=== PATIENT | male | born 1945 | race Caucasian/White ===

== ENCOUNTER 2018-06-28 11:22 | Emergency (ER) | payer MEDICARE, BC, SELFPAY ==
[2018-06-28 11:28] VITALS: BP 160/89; PULSE 47; RESP 17; TEMP 36.4; O2SAT 100
--- NOTE | 2018-06-28 11:48 | W.ED.GENAD ---
Discharge Plan Disposition Patient Disposition: HOME Condition: Improving Discharge Details Chief Complaint: RespSymp Clinical Impression: Acute bronchitis Primary Care Provider: Isidro Llamas ED Provider: Woo Perez Home Meds and New Rx's Prescriptions: New levofloxacin 500 mg tablet 500 mg PO DAILY 10 Days Qty: 10 RF: 0 Discharge Instructions Instructions: Acute Bronchitis (ED) Additional Instructions: Please follow-up with Dr. Llamas if not improving in 5 days time. Take medication as prescribed. Return to see Dr. Llamas if you develop worsening cough, congestion, joint or ligament pain. Home to rest. Small, frequent sips of fluids to maintain hydration Medical Decision Making 73-year-old male presents from home with persistent cough and congestion is worsening now on day 8 and 9 of illness. Is afebrile and well-appearing. His exam is reassuring and during my exam his pulse is within normal limits. His presentation is concerning for a viral syndrome that is converting to a bacterial process after 1 week of illness. His oxygenation is normal and I do not feel he requires chest imaging, but will consider if he does not improve with oral antibiotic therapy. Asked him to follow-up with Dr. Llamas in clinic for recheck. Placed him on a course of Levaquin. Stable for outpatient management at this time. HPI General Mode of arrival: ambulatory. Date/Time Provider Initiated Documentation: 06/28/18 11:32. Limitations to Documentation: no limitations. Information obtained by: patient. History of Present Illness 73 year old M presents to the emergency department with the chief complaint of Cough and congestion, described as moderate, Quality is described as aching, and is localized to the chest. Patient reports no radiation. Patient started experiencing this day(s) and it has been intermittent. No relieving factors improve symptom(s), No exacerbating factors reported . HPI Narrative: This is a 73-year-old male who presents with cough, congestion, production of discolored sputum over 8 days time. He feels over the past 2 days has begun to get worse. Is not had any air hunger. He has not been vomiting. He has had significant exacerbating or ameliorating factors Related Data Home Medications Medication Instructions Recorded Confirmed levofloxacin 500 mg PO DAILY 10 Days #10 tab 06/28/18 Previous Rx's Medication Instructions Recorded levofloxacin 500 mg PO DAILY 10 Days #10 tab 06/28/18 Allergies Allergy/AdvReac Type Severity Reaction Status Date / Time Penicillins Allergy Unknown Unverified 08/20/15 13:14 General Stated Complaint: RespSymp ANA: 4 Review of Systems Review of Systems 6 systems reviewed and otherwise neg PFSH Social History Smoking/Tobacco Use Status: Former Tobacco Use Exam Narrative Exam Narrative: GEN: awake, alert, oriented 3. Pleasant, well groomed, interactive. HEAD: Normocephalic, atraumatic ENT: Mucous membranes moist, oropharynx unremarkable, External ear exam unremarkable EYES: PERRL, EOMI NECK: Full ROM, no IRAM, no menigismus CHEST/RESP: Nontender, clear to auscultation bilateral, no wheeze/rhonchi/rales. Cough noted CARDIOVASCULAR: RRR, no murmur, rub rufino. 2+ Rad pulse bilateral ABDOMEN: Soft, nontender, no mass. +Bowel sounds EXT: Full ROM, no edema, no rash Neuro: Grossly normal neurologic exam, conversant, interactive. Psych: Speech fluent, thoughts congruent, affect normal Course Vital Signs Temperature 36.4 C L 06/28/18 11:28 Pulse 47 L 06/28/18 11:28 Respiratory Rate 17 06/28/18 11:28 Blood Pressure 160/89 H 06/28/18 11:28 Pulse Oximetry 100 06/28/18 11:28 Temperature 36.4 C L 06/28/18 11:28 Temperature Source Temporal Artery Scan 06/28/18 11:28 Pulse 47 L 06/28/18 11:28 Respiratory Rate 17 06/28/18 11:28 Respiratory Effort 06/28/18 11:32 Blood Pressure 160/89 H 06/28/18 11:28 Blood Pressure Position Sitting 06/28/18 11:28 Pulse Oximetry 100 06/28/18 11:28 Oxygen Delivery Method Room Air 06/28/18 11:28 Oxygen Flow Rate 0 06/28/18 11:28 Pain Level 0 06/28/18 11:28
--- NOTE | 2018-06-28 11:52 | ED.GENADUL_ITS ---
Discharge Plan Disposition Patient Disposition: HOME Condition: Improving Discharge Details Chief Complaint: RespSymp Clinical Impression: Acute bronchitis Primary Care Provider: Isidro Llamas ED Provider: Woo Perez Home Meds and New Rx's Prescriptions: New levofloxacin 500 mg tablet 500 mg PO DAILY 10 Days Qty: 10 RF: 0 Discharge Instructions Instructions: Acute Bronchitis (ED) Additional Instructions: Please follow-up with Dr. Llamas if not improving in 5 days time. Take medication as prescribed. Return to see Dr. Llamas if you develop worsening cough, congestion, joint or ligament pain. Home to rest. Small, frequent sips of fluids to maintain hydration Medical Decision Making 73-year-old male presents from home with persistent cough and congestion is worsening now on day 8 and 9 of illness. Is afebrile and well-appearing. His exam is reassuring and during my exam his pulse is within normal limits. His presentation is concerning for a viral syndrome that is converting to a bacterial process after 1 week of illness. His oxygenation is normal and I do not feel he requires chest imaging, but will consider if he does not improve with oral antibiotic therapy. Asked him to follow-up with Dr. Llamas in clinic for recheck. Placed him on a course of Levaquin. Stable for outpatient management at this time. HPI General Mode of arrival: ambulatory . Date/Time Provider Initiated Documentation: 06/28/18 11:32 . Limitations to Documentation: no limitations . Information obtained by: patient . History of Present Illness 73 year old M presents to the emergency department with the chief complaint of Cough and congestion, described as moderate, Quality is described as aching , and is localized to the chest. Patient reports no radiation. Patient started experiencing this day(s) and it has been intermittent. No relieving factors improve symptom(s), No exacerbating factors reported . HPI Narrative: This is a 73-year-old male who presents with cough, congestion, production of discolored sputum over 8 days time. He feels over the past 2 days has begun to get worse. Is not had any air hunger. He has not been vomiting. He has had significant exacerbating or ameliorating factors Related Data Home Medications Medication Instructions Recorded Confirmed levofloxacin 500 mg PO DAILY 10 Days #10 tab 06/28/18 Previous Rx's Medication Instructions Recorded levofloxacin 500 mg PO DAILY 10 Days #10 tab 06/28/18 Allergies Allergy/AdvReac Type Severity Reaction Status Date / Time Penicillins Allergy Unknown Unverified 08/20/15 13:14 General Stated Complaint: RespSymp ANA: 4 Review of Systems Review of Systems 6 systems reviewed and otherwise neg PFSH Social History Smoking/Tobacco Use Status: Former Tobacco Use Exam Narrative Exam Narrative: GEN: awake, alert, oriented 3. Pleasant, well groomed, interactive. HEAD: Normocephalic, atraumatic ENT: Mucous membranes moist, oropharynx unremarkable, External ear exam unremarkable EYES: PERRL, EOMI NECK: Full ROM, no IRAM, no menigismus CHEST/RESP: Nontender, clear to auscultation bilateral, no wheeze/rhonchi/ rales. Cough noted CARDIOVASCULAR: RRR, no murmur, rub rufino. 2+ Rad pulse bilateral ABDOMEN: Soft, nontender, no mass. +Bowel sounds EXT: Full ROM, no edema, no rash Neuro: Grossly normal neurologic exam, conversant, interactive. Psych: Speech fluent, thoughts congruent, affect normal Course Vital Signs Temperature 36.4 C L 06/28/18 11:28 Pulse 47 L 06/28/18 11:28 Respiratory Rate 17 06/28/18 11:28 Blood Pressure 160/89 H 06/28/18 11:28 Pulse Oximetry 100 06/28/18 11:28 Temperature 36.4 C L 06/28/18 11:28 Temperature Source Temporal Artery Scan 06/28/18 11:28 Pulse 47 L 06/28/18 11:28 Respiratory Rate 17 06/28/18 11:28 Respiratory Effort 06/28/18 11:32 Blood Pressure 160/89 H 06/28/18 11:28 Blood Pressure Position Sitting 06/28/18 11:28 Pulse Oximetry 100 06/28/18 11:28 Oxygen Delivery Method Room Air 06/28/18 11:28 Oxygen Flow Rate 0 06/28/18 11:28 Pain Level 0 06/28/18 11:28
== END 2018-06-28 11:56 | disposition home or self-care (01) ==
PROVIDERS: Emergency Provider Emergency Medicine; PCP General Practice
DX: J20.9 Acute bronchitis, unspecified (principal); Z87.891 Personal history of nicotine dependence
CPT/HCPCS: 99283

== ENCOUNTER → 2018-08-19 08:32 | Outpatient (BNVA) | payer MEDICARE, BC, SELFPAY | PROVIDERS: PCP General Practice; Visit Provider Orthopaedic Surgery | DX: R69 Illness, unspecified (principal) | CPT/HCPCS: 99211 ==

== ENCOUNTER 2018-08-19 10:19 | Outpatient (CLI) | payer MEDICARE, BC, SELFPAY ==
[2018-08-19 11:45] LABS: Cholesterol 242 mg/dL (50-200); Glucose 112 mg/dL (70-100); HDL Cholesterol 58 mg/dL (40-60); LDL CHOLESTEROL 178 mg/dL (<100); Triglyceride 74 mg/dL (30-150)
== END 2018-08-19 10:39 ==
PROVIDERS: PCP General Practice; Visit Provider General Practice
DX: Z13.6 Encounter for screening for cardiovascular disorders (principal); Z13.1 Encounter for screening for diabetes mellitus; M17.11 Unilateral primary osteoarthritis, right knee
CPT/HCPCS: 20610; 36415; 80061; 82947; 83721; 99211; 99213; J7325

== ENCOUNTER 2019-02-09 07:06 | Outpatient (CLI) | payer MEDICARE, BC, SELFPAY ==
[2019-02-09 08:16] LABS: Glucose 103 mg/dL (70-100)
== END 2019-02-09 07:26 ==
PROVIDERS: PCP General Practice; Visit Provider General Practice
DX: R73.03 Prediabetes (principal)
CPT/HCPCS: 36415; 82947

== ENCOUNTER → 2019-02-17 08:54 | Outpatient (BNVA) | payer MEDICARE, BC, SELFPAY | PROVIDERS: PCP General Practice; Referring Provider General Practice; Visit Provider Orthopaedic Surgery | DX: M17.11 Unilateral primary osteoarthritis, right knee (principal) | CPT/HCPCS: 20610; 99211; 99212; J7325 ==

== ENCOUNTER → 2019-02-21 11:30 | Outpatient (BNVA) | payer MEDICARE, BC, SELFPAY | PROVIDERS: PCP General Practice; Referring Provider General Practice; Visit Provider Surgery | DX: K40.90 Unilateral inguinal hernia, without obstruction or gangrene, not specified as recurrent (principal) | CPT/HCPCS: 99212; 99213 ==

== ENCOUNTER → 2019-06-29 09:30 | Outpatient (BNVA) | payer MEDICARE, BC, SELFPAY | PROVIDERS: PCP General Practice; Referring Provider General Practice; Visit Provider Surgery | DX: K40.20 Bilateral inguinal hernia, without obstruction or gangrene, not specified as recurrent (principal); R35.1 Nocturia | CPT/HCPCS: 99212; 99213 ==

== ENCOUNTER 2019-08-01 09:01 | Day surgery (SDC) | payer MEDICARE, BC, SELFPAY ==
--- NOTE | 2019-07-31 21:07 | HPE_ITS ---
Date of service: 08/01/19 Time of Service: 09:08 Assessment and Plan Assessment and plan (1) Bilat ing hernia: Status: Acute Assessment and plan: Risks of the surgery include but are not limited to: Bleeding/infection/pneumonia/damage to blood vessels or bladder or bowels/blood clots or PE/chronic pain/urinary retention/chronic numbness/reoccurrence/reaction to mesh requiring removal/damage to testicle or sterility/complications of anesthesia. The procedure will be done with abx and under sterile conditions. The pt requires a ride home from surgery and someone to stay with the pt for 24 hrs after anesthesia. No lifting over 5 pounds for 2 weeks after surgery. possible open procedure. b/c of pt s/s of some mild BPH- he was started on flomax. (b/l ing hernia sx has high rate of postOp urinary retention). He reports that this has made a diff in his nocturia- and he should stay on this medication. stable for surgery today History of Present Illness Consults Consult date: 08/01/19 Narrative: HPI. Pt. is seen in consultation by PCP Symptoms have been since this summer. Did not start at work. Pain is right groin Lump is reducible. Pt has no S/s of chronic constipation,chronic cough,difficulty urinating. Pt does admit to not as strong of a stream as he used to have and having to get up 1-2 x per night. Pt. HAS Not previous hx of groin surgery. Genitalia- no scars, Lump IS: visualized, penis IS circumcised and no lesions, testicles normal, hernia IS palpable on LEFT/RIGHT both side(s) WITH Valsalva. Imp: b/l inguinal hernia Plan: b/l laprascopic inguinal hernia repair w/ Dr. Zaragoza I discussed the nature of inguinal hernias with the pt. He does have bilateral hernias and is interested inhaving both sides down. I discussed the surgery in detail and the complications related to the surgery and the anesthesia. Pt. understands this, all questions were answered to the patient satisfaction and they signed the consent for surgery. Patient was given an educational booklet. WIll plan on doing in conjunction w/ Dr. Zaragoza. Possibliity that we can complete procedure laprascopicaly adn will need to do open. 08/01/19 pt seen and examined. No changes in health status or medications.no cough cold type s/s. no cp or SOB. DM controlled w/ diet only He notes he has been having more pain on R side. R side is larger than left. We are planning on doing bilat today. pt notes that urinary s/s have been better since he has been on FLomax. I do think he needs to remain on that. he is in sinus today. we reviewed postOp cares he prefers tramadol for postOp pain stable for procedure Review of Systems All systems reviewed & are unremarkable except as noted in HPI and below Constitutional Constitutional: Reports as per HPI, Reports system reviewed and no additional complaints, except as docu, Denies anorexia, Denies chills, Denies difficulty sleeping, Denies fatigue, Denies headache(s), Denies lethargy, Denies malaise, Denies poor appetite, Denies weakness, Denies weight gain and Denies weight loss Eyes Eyes: Reports as per HPI, Reports system reviewed and no additional complaints, except as docu and Denies change in vision ENT Ears, Nose, Mouth, and Throat: Reports system reviewed and no additional complaints, except as docu, Reports as per HPI, Denies change in voice, Denies dental pain, Denies dysphagia, Denies dizziness, Denies facial pain, Denies headache(s) and Denies odynophagia Cardiovascular Cardiovascular: Reports as per HPI, Reports system reviewed and no additional complaints, except as docu, Denies chest pain, Denies chest pain with activity, Denies syncope, Denies leg edema and Denies dyspnea Respiratory Respiratory: Reports as per HPI, Reports system reviewed and no additional complaints, except as docu, Denies chest congestion, Denies cough, Denies pain with cough and Denies dyspnea Gastrointestinal Gastrointestinal: Reports as per HPI, Reports system reviewed and no additional complaints, except as docu, Denies abdominal pain, Denies bloating, Denies change in bowel habits, Denies change in stool character, Denies constipation, Denies cramping, Denies dysphagia, Denies early satiety, Denies heartburn, Denies diarrhea, Denies nausea, Denies odynophagia and Denies vomiting Genitourinary Genitourinary: Reports system reviewed and no additional complaints, except as docu Musculoskeletal Musculoskeletal: Reports system reviewed and no additional complaints, except as docu, Reports as per HPI, Denies abnormal gait, Denies arthralgias and Denies muscle weakness Integumentary/Breasts Skin/Breast: Reports system reviewed and no additional complaints, except as docu, Reports as per HPI, Denies changing lesions, Denies new lesions and Denies jaundice Neurologic Neurologic: Reports system reviewed and no additional complaints, except as docu, Reports as per HPI, Denies abnormal speech, Denies abnormal gait, Denies dizziness, Denies syncope, Denies headache(s), Denies memory loss and Denies weakness Psychiatric Psychiatric: Reports system reviewed and no additional complaints, except as docu, Reports as per HPI, Denies change in appetite and Denies memory loss Endocrine Endocrine: Denies fatigue, Denies polydipsia and Denies polyuria Hematologic/Lymphatic Hematologic/Lymphatic: Reports system reviewed and no additional complaints, except as docu, Denies easy bleeding and Denies easy bruising Allergic/Immunologic Allergic/Immunologic: Denies system reviewed and no additional complaints, except as docu, Reports as per HPI and Denies urticaria [facility] Medical History (Updated 08/01/19 @ 09:19 by Behzad Perez) Atrial fibrillation (Chronic) Bilat ing hernia (Acute) Nocturia (Acute) Primary osteoarthritis of right knee (Chronic) Right inguinal hernia (Acute) Surgical History Hx of repair of rotator cuff (Acute) Left Hx of spinal surgery (Acute) L5-S1 Family History Mother , age 80 Heart disease Father , age 83 No problems noted. Social History Smoking/Tobacco Use Status: Former Tobacco Use Quit Date: 09/14/79 Alcohol Intake: current Alcohol Intake frequency: a few times a month Drug use: Occasionally Substance use type: marijuana Caregiver/Support person: No Household members: none Housing: house Do you need help understanding health information?: Rarely Pets and animals: Yes Pets and animals: dog(s) Sexually active: Yes Do you think of yourself as: straight/heterosexual Current gender identity: male What is your relationship status?: How often do you talk on the phone with friends or family?: once per week How often do you get together with friends or relatives?: once per week How often do you attend yazdanism or orthodox services?: 1-3 times per year Do you belong to any clubs or organized social groups?: yes Panel score (0-1 are the most socially isolated patients): 1 What type of physical activity do you participate in: walking and other Details: skiing, yard/zuñiga work Duration: decline to answer Frequency: decline to answer Shirley/Scientology: Spiritual Special shirley needs: No Seatbelt use: always Helmet use: Yes Helmet use: always Drive intox 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 Do you feel safe at home: Yes Do you feel safe in your relationship?: Yes Meds Home Medications and Allergies Home Medications Medication Instructions Recorded Confirmed Type antiarthritic combination no.2 900 1,500 mg PO tab 06/29/19 06/29/19 History mg tablet omega-3 fatty acids 1,000 mg 720 mg PO DAILY cap 06/29/19 08/01/19 History capsule quinine sulfate 324 mg capsule 500 mg PO DAILY cap 06/29/19 08/01/19 History tamsulosin 0.4 mg capsule 0.4 mg PO DAILY #30 cap 06/29/19 08/01/19 Rx Allergies Allergy/AdvReac Type Severity Reaction Status Date / Time Penicillins Allergy Unknown Verified 08/01/19 09:24 Exam Const General: cooperative, healthy appearing, comfortable, no acute distress, well developed and well groomed Nutritional Appearance: average body habitus and well nourished Orientation: alert, awake and oriented x3 HENMT Head: normal to inspection, normocephalic and atraumatic Ears: hearing grossly normal bilaterally and external ears normal General nose exam: external nose normal Face and sinus: normal facial exam and sinuses nontender Mouth: oral mucosae normal, lip normal, tongue normal and moist mucous membranes Teeth and gingiva: dentition normal Eyes General: appearance normal, both eyes and all related structures Conjunctivae: conjunctivae normal Sclera: sclerae normal Pupils: PERRL Neck Neck: normal visual inspection and full ROM Chest Chest: normal inspection of the chest Resp Effort & Inspection: normal respiratory effort, able to speak in complete sentences, no cough, no nasal flaring, not tachypneic and no use of accessory muscles Auscultation: clear to auscultation bilaterally, no rales, no rhonchi and no wheezes Cardio Jugular venous pressure: no JVD Rate: regular rate Rhythm: regular rhythm GI Inspection: normal to inspection, no edema and non-distended Palpation: soft, no masses, nontender and No ascites Auscultation: normal bowel sounds Other: b/l ing hernia. R>L. soft and reducible Skin General skin exam: no rashes or lesions noted Trauma: no lacerations or abrasions Neuro General: alert, oriented x3, oriented, gait normal, moves all extremities, no focal motor deficits and CN's II-XI intact bilaterally Cognition: normal cognition Speech: speech normal Gait: normal gait Motor: muscle tone normal throughout Extrem General: normal to inspection, full ROM and no clubbing, cyanosis or edema Psych Appearance: grossly normal and well kempt Mental Status: mental status grossly normal Speech and Movement: speech and movement normal Affect: normal affect
[2019-08-01] VITALS (7 sets, daily range): BP systolic 103–158; BP diastolic 49–88; PULSE 51–64; RESP 13–18; TEMP 35.9–36.5; O2SAT 95–99
[2019-08-01] MEDS: Lactated Ringers 1,000 ML 100 ML IV ×2 (09:49→13:18)
[2019-08-01] MEDS: Gabapentin 300 MG CAP PO (09:54)
[2019-08-01] MEDS: Acetaminophen 500 MG TAB 1000 MG PO (09:54)
--- NOTE | 2019-08-01 10:56 | W.PM.OP ---
Date of service: 08/01/19 Operative Note Operative Note DATE OF PROCEDURE: 08/01/19 PRE-OP DIAGNOSIS: b/l inguinal hernia R>L POST-OP DIAGNOSIS: same PROCEDURE: b/l laprascopic inguina hernia repair w/ mesh SURGEON: Elaina Zaragoza ASSISTING SURGEON: Edie Cordova ANESTHESIA: GETA and local ESTIMATED BLOOD LOSS: 5 PATHOLOGY: none sent COMPLICATIONS: None Patient was transported to: PACU Procedure Description: see dictation
[2019-08-01] MEDS: Bupivacaine LIPOSOME/PF 133 MG/10 ML VIAL IJ ×2 (11:08→13:13)
[2019-08-01] MEDS: Bupivacaine 0.25% Pres-Free 30 ML VIAL ×2 (11:08→11:41)
[2019-08-01] MEDS: CLINDAMYCIN 600 MG/50 ML BAG 100 MG IVPB (11:37)
--- NOTE | 2019-08-01 13:15 | W.PM.OP ---
Date of service: 08/01/19 Time of Service: 13:15 Operative Note Operative Note DATE OF PROCEDURE: 08/01/19 PRE-OP DIAGNOSIS: Bilateral inguinal hernias POST-OP DIAGNOSIS: same PROCEDURE: Laparoscopic Bilateral inguinal hernia repair with 3D mesh SURGEON: Elaina Zaragoza ASSISTING SURGEON: Edie Cordova ANESTHESIA: GETA ESTIMATED BLOOD LOSS: 50 PATHOLOGY: none sent COMPLICATIONS: None Patient was transported to: PACU Patient's condition: stable Implants: Bard 3D Mesh large left and Right Indications: Mr. Paredes is a pleasant 74 year old male seen in the office by Dr. Cordova for Bilateral inguinal hernias. Laparoscopic, possible open repair was discussed with him and he wished to proceed. Risks, benefits and complications have been reviewed. Complications include but are not limited to bleeding, infection, injury to vas, vessels and nerves, injury to bowel and adverse reaction to medications. Questions were entertained and answered to their satisfaction and they wished to proceed. Findings: Cord lipomas bilaterally and small hernia sacs. Femoral hernia noted on the left as well Procedure Description: After informed consent was obtained in same-day surgery the patient was taken back into the operating room and placed in a supine position on the operating room table. SCDs were applied. Anesthesia did a timeout for a bilateral tap block. The patient was then placed under general anesthesia and intubated without difficulty. Anesthesia then did an ultrasound-guided tap block bilaterally. Please see their separate dictation for this. Once the block was done a Peck catheter was placed in a standard surgical fashion. Next the scrotum and penis were prepped with iodine. A sterile towel was placed underneath the scrotum. The abdomen was then prepped with chlorhexidine. The abdomen and scrotum were then draped in a standard surgical fashion. Next 1% lidocaine was injected just underneath the umbilicus into the dermis. A 2 cm incision was made into the dermis. The subcutaneous tissue was then dissected using blunt dissection until the fascia was identified and grasped with hemostats. The fascia was opened and dissection was then done bluntly. I placed my finger into the area and found that we had gone through the peritoneum into the abdomen while doing blunt dissection with my finger the peritoneum was grasped and closed with a 0 Vicryl [id number]. The preperitoneal space was then identified first I dissected a small area with my finger and then the balloon dissector was inserted easily down to the pubic symphysis. The balloon was inflated. Once the inguinal area was dissected bilaterally the balloon was deflated and removed. The stay balloon was then into insufflated. The preperitoneal space was then insufflated with CO2 and a camera was placed. Good dissection had been achieved with the balloon dissector. 2 more 5 mm ports were then placed under direct visualization in the midline. One just above the pubic symphysis and [address] between the pubic symphysis and the umbilicus. Next dissection was done from the left side of the pubic symphysis to the anterior superior iliac spine gently pulling down the peritoneum. A femoral hernia defect was then identified. The cord structures were then identified and gently dissected using a [place] dissector and a Raptor dissector. A 2 large cord lipomas were removed without difficulty. The vas and its vessels were identified and skeletonized again using the [place] dissector and the Raptor making sure not to injure the vessels. Once the peritoneum was pulled down and a small hernia sac was pulled down dissection was done on the right side. Again the pubic symphysis was identified and then the peritoneum was gently dissected down I like me to visualize the cord structures. The cord structures were gently grasped and a large cord lipoma was identified and pulled down and away from the cord structures. A small hernia sac was identified and pulled down. Once the peritoneum was completely pulled down a left 3D mesh and put into the preperitoneal space. It was tacked just past midline above the pubic symphysis. It was also tacked just above the anterior superior iliac spine. A second mesh was then placed to cover the right side. It was again attached past midline just above the pubic symphysis and then laterally just above the anterior superior iliac spine. Once the meshes were secured the CO2 was released and the 5 mm ports were removed. The fascia was closed with a 0 Vicryl and the larger of the 3 incisions. The skin was closed with 4-0 Monocryl. The skin was cleaned and dried and skin affix was applied. Sponge instrument needle counts were correct at this time. The Peck was removed prior to the patient waking up. The patient was woken up extubated and taken back to PACU in stable condition. There were no immediate complications.
--- NOTE | 2019-08-01 13:28 | PDOC.DSDIS_ITS ---
Discharge Plan Disposition Patient Disposition: HOME Condition: Good Discharge Details Reason For Visit: bilateral inguinal hernias Attending Provider: Edie Cordova Primary Care Provider: Jeffrey Phillips Home Meds and New Rx's Prescriptions: New tramadol 50 mg tablet 50 mg PO Q6H PRN (Reason: pain) Qty: 14 RF: 0 ibuprofen 600 mg tablet 600 mg PO Q6H PRN (Reason: pain) Qty: 60 RF: 3 Continued quinine sulfate 324 mg capsule 500 mg PO DAILY RF: 0 omega-3 fatty acids [Fish Oil Concentrate] 1,000 mg capsule 720 mg PO DAILY RF: 0 glucosamine-chondroitin 900 mg tablet 1,500 mg PO RF: 0 tamsulosin [Flomax] 0.4 mg capsule 0.4 mg PO DAILY Qty: 30 RF: 12 Discharge Instructions Additional Instructions: Dr. Cordova HERNIA REPAIR ? POSTOPERATIVE INSTRUCTIONS ? Laprascopic mesh surgery for hernia repair allows the patient to return to normal activities at an early date. Patients who have this type of surgery can usually be expected to return to work within two weeks and have minimal amounts of discomfort. ? ACTIVITY: The day of surgery should be spent resting. However, you can be up for short periods of time, I.E., going to the bathroom or kitchen. Avoid lifting or straining. On the day following surgery, you can be up and about as desired. ? LIFTING: Restrict your lifting to no more than five (5) pounds for the first week following surgery. ? DIET: There are no dietary restrictions following surgery. However, you may want to start with small amounts of liquids to avoid nausea the day of surgery. ? INCISION CARE: You will notice strips of tape covering the wound ? DO NOT REMOVE THESE STRIPS - they help the wound to heal. After 24 hours you may shower and apply a clean dressing over the strips of tape. The dressing may be replaced as necessary. An ice bag may be applied to the incision for 72 hours following surgery. ? SIGNS OF INFECTION: It is not unusual to have some black and blue discoloration of the skin around the incision scrotum and penis. It will s lowly disappear. If you have any increased redness, drainage, fever (above 100 degrees), please contact your doctor for an examination. ? DISCOMFORT: You may expect to have some mild discomfort at the incision sight. If severe pain develops you should contact your doctor for further instructions. ? URINATION: Patients who have surgery occasionally have problems urinating. If you experience problems and are not able to urinate within 6 hours following your surgery, please call your doctor immediately or go to your nearest Emergency Room for evaluation. ? DRIVING: NO driving for five (5) days after surgery ? MEDICATIONS: Alternate Tylenol 1000mg by mouth every 8hrs and Ibuprofen 600mg every 6hrs. Take the Tylenol and ibuprofen continuously for the first 72hrs- not just when you have pain. Use the tramadol for breakthrough pain. Use ice 20 minutes off/on continuously for the first 72hours. If you are taking narcotic pain medication, follow the instructions on the label and do not drive. Pain medications can make you very constipated. Make sure you are moving your bowels daily. If not, take Miralax, milk of magnesia or magnesium citrate. ? REPORT: Unusual swelling, severe pain, unresolved nausea, signs of infection, or difficulty in urination to your surgeon. Follow up in clinic with Dr. Cordova in 1-2 weeks. Please call for appointment: [phone] Stand Alone Forms: Yung.Nerve Block Instructions, DSU Post op Instructions, Mily Rodríguez (DSU) Activity:: see above Remove Dressings/Wound Care:: 24 hours Shower/Bathe:: 24 hours Diet:: As Tolerated DS: Diagnosis Discharge Diagnosis (1) Bilat ing hernia: Status: Acute
== END 2019-08-01 15:45 | disposition home or self-care (01) ==
PROVIDERS: Surgery; PCP Family Medicine; Visit Provider Surgery
PROC: (CPT 49650; principal; 2019-08-01 11:15)
DX: K40.20 Bilateral inguinal hernia, without obstruction or gangrene, not specified as recurrent (principal); D17.6 Benign lipomatous neoplasm of spermatic cord; G89.18 Other acute postprocedural pain; N40.0 Benign prostatic hyperplasia without lower urinary tract symptoms
CPT/HCPCS: 49650; 76942; NC; C1781; J1100; J1885; J2250; J2405

== ENCOUNTER → 2019-08-17 08:55 | Outpatient (BNVA) | payer MEDICARE, BC, SELFPAY | PROVIDERS: PCP Family Medicine; Referring Provider Family Medicine; Visit Provider Surgery | DX: Z48.815 Encounter for surgical aftercare following surgery on the digestive system (principal); N40.1 Benign prostatic hyperplasia with lower urinary tract symptoms; R35.1 Nocturia ==

== ENCOUNTER → 2019-08-18 08:51 | Outpatient (BNVA) | payer MEDICARE, BC, SELFPAY | PROVIDERS: PCP Family Medicine; Referring Provider General Practice; Visit Provider Student in an Organized Health Care Education/Training Program | DX: M17.11 Unilateral primary osteoarthritis, right knee (principal) | CPT/HCPCS: 20610; 99213; J7325 ==

== ENCOUNTER 2019-08-31 01:19 | Outpatient (CLI) | payer MEDICARE, BC, SELFPAY ==
[2019-08-31 09:38] LABS: HCT 48.7 % (40.0-50.0); HGB 16.1 g/dL (13.5-17.5); Mean Corp. HGB Concentration 33.1 g/dL (32.0-36.0); Mean Corpuscular Hemoglobin 31.8 pg (27.0-33.0); Mean Corpuscular Volume 96.2 fL (80-95); Mean Platelet Volume 9.7 fL (8.0-11.0); Platelet Count 225 x1000/uL (130-400); RBC 5.06 m/cumm (4.50-6.00); RBC Distribution Width 13.4 % (11.8-14.1); White Blood Cell Count 5.26 k/cumm (4.4-10.8)
[2019-08-31 09:49] LABS: Hemoglobin A1C 5.8 % (4.5-6.2)
[2019-08-31 09:53] LABS: ALT 28 U/L (16-63); AST 28 U/L (15-37); Albumin 3.7 g/dL (3.4-5.0); Alkaline Phosphatase 95 U/L (46-116); BUN 18 mg/dL (7-18); Bilirubin, Total 0.9 mg/dL (0.2-1.0); CREATININE 1.03 mg/dL (0.70-1.30); Calculated LDL 120 mg/dL; Chloride 103 mmol/L (98-107); Cholesterol 188 mg/dL (<200); Glucose 104 mg/dL (74-106); HDL Cholesterol 53 mg/dL (40-60); Potassium 4.4 mmol/L (3.5-5.1); Sodium 140 mmol/L (136-145); Total Protein 6.8 g/dL (6.4-8.2); Triglyceride 79 mg/dL (<150)
== END 2019-08-31 01:39 ==
PROVIDERS: PCP Family Medicine; Visit Provider Family Medicine
DX: E78.5 Hyperlipidemia, unspecified (principal); R73.03 Prediabetes; K40.90 Unilateral inguinal hernia, without obstruction or gangrene, not specified as recurrent
CPT/HCPCS: 36415; 80053; 80061; 85027; 83036